=== PATIENT | male | born 1995 ===

== ENCOUNTER → 2016-06-13 | Outpatient (CLI) | payer MEDICARE, MEDICAID | END | disposition home or self-care (01) | LOC: RAD.S 05-27 08:00 | DX: R06.00 Dyspnea, unspecified (principal); Z53.9 Procedure and treatment not carried out, unspecified reason ==

== ENCOUNTER 2016-08-20 14:13 | Inpatient (IN) | payer MEDICARE, MEDICAID ==
[~2016-08-20] VITALS: Ht 160 cm; Wt 102.0 kg
--- NOTE | ~2016-08-20 | ECH ---
Transthoracic Echocardiography Report (TTE) Demographics Patient Name ABA AMES Date of Study 08/21/2016 Patient Number [id number] Visit Number [id number] Date of 1995 Room Number 302 Accession Number [id number] Gender Male Age 20 year(s) Referring Dennis Alvarez Patient Registration Clerk Rafaela Payne [facility] Physician Physician Interpreting King Huy Powers MD Election Judge Physician Supervising Ordering Physician Shanique Maxwell MD/KRISTIE HAYNES Nurse Stress Trucking Supervisor Conclusions Summary Technically fair exam. The estimated left ventricular ejection fraction is 60-65%. Moderate eccentric left ventricular hypertrophy. Diastolic assessment reveals Grade I diastolic dysfunction. Procedure Type of Study TTE procedure:Echo Complete SF. Procedure Date Date: 08/21/2016 Start: 12:02 PM Technical Quality: Fair due to patient on ventilator. Indications:Shortness of breath. Additional Indications:severe ARDS Appropriate Use Criteria: 8 Height: 63 inches Weight: 227 pounds BSA: 2.04 m Rhythm: Within normal limits HR: 97 bpm BP: 174/94 mmHg M-Mode/2D Measurements LV Diastolic Dimension: 4.28 cm LV Systolic Dimension: 3.2 cm LV Septum Diastolic: 1.66 cm LV PW Diastolic: 1.51 cm AO Root Dimension: 3.18 cm Cardiac Output: 5.61 l/min LA Dimension: 3.8 cm Cardiac Index: 2.75 l/min*m LA volume index: 24 ml/m LVOT: 1.99 cm RV Base: 3.9 cm LVOT VTI: 18.62 cm RV Mid: 3.5 cm LV Stroke volume: 57.88 ml RV Length: 6.7 cm LV Stroke volume index: 28.37 ml/m TAPSE: 2.3 cm TDI-S': 14 cm/s Doppler Measurements AV Peak Velocity: 1.1 m/s MV Peak E-Wave: 0.7 m/s AV Peak Gradient: 4.84 mmHg MV Peak A-Wave: 0.62 m/s AV Mean Gradient: 2.52 mmHg MV E/A Ratio: 1.13 LVOT Peak Velocity: 0.83 m/s MV P1/2t: 43.3 msec AV Area (Continuity):2.9 cm MV Deceleration Time: 186.5 msec MV Area (PHT): 5.09 cm PV Peak Velocity: 0.98 m/s PV Peak Gradient: 3.82 mmHg RA Area: 10.13 cm Findings Left Ventricle The left ventricle is normal in size . Moderate eccentric left ventricular hypertrophy. Diastolic assessment reveals Grade I diastolic dysfunction. Right Ventricle Normal right ventricle structure and function. Left Atrium Normal left atrial size. Right Atrium Normal right atrial size. Mitral Valve Mild thickening of the mitral valve leaflets. Aortic Valve Normal aortic valve structure and function. Tricuspid Valve Normal tricuspid valve structure and function. Pulmonic Valve Normal pulmonic valve structure and function. Pericardial Effusion No evidence of pericardial effusion. Miscellaneous Visualized portions of the aortic root and ascending aorta appear normal in size. Signature
--- NOTE | 2016-08-24 14:54 | HP ---
ADMIT: 08/20/2016 RM/LOC: 302 [facility] MR#: [id number] [address] [facility] [address] [place], [place] [address] ABA AMES Zuri [address] [facility] [place] [address] History and Physical SEX: M AGE: 20 : 1995 DATE OF SERVICE: CHIEF COMPLAINT: Hypoxia. HISTORY OF PRESENT ILLNESS: Sarah is a 20-year-old gentleman with severe autistic disorder and delay, who was nonverbal. He came to the ER with his family because they stated he had been up for a couple of nights, not sleeping and was coughing, running a fever. On presentation to the emergency room, oxygen saturation was in the 40s. He was started on oxygen and eventually switched to BiPAP at 15 L, which he remains. He has stable blood pressures and is actually running high pressure because of agitation. Sepsis markers are elevated, and he got a high white count. He will be admitted to the intensive care unit with sepsis and right-sided pneumonia. He was in the clinic on 08/19/2016 with cough and a temp of 101. He had symptoms just starting on the . He was eating less by report from family. He was started on cefdinir antibiotic and did take a couple of doses according to mom. He is unable to give us any history himself and cannot verbalize if he hurt anywhere or any other complaints. I do note that in the office, oxygenation was documented at 92%, blood pressure 138/90, and temperature was 101. PAST MEDICAL HISTORY: Significant for autistic spectrum disorder, severe and gastroesophageal reflux, legal blindness, behavioral disturbance related to his autism, and chronic constipation. The patient also has severe dental decay. PAST SURGICAL HISTORY: None reported, although he has had upper endoscopy, I believe several years ago according to family tell me. MEDICATIONS: 1. Zyprexa 5 mg at 8:00 a.m. and 5 mg at 1:00 p.m. and then one as needed in the evening. 2. Clonidine 0.1 mg b.i.d. 3. Hibiclens once weekly for bathing. 4. Ketoconazole 2% cream for skin rash. 5. Ketoconazole 2% shampoo use daily. 6. MiraLAX 17 g powder in water or juice daily. SOCIAL HISTORY: He has never smoked. There is no alcohol use. Does not exercise and mainly sitting at home with family caring for him. He is ambulatory at baseline. However, he has difficulties and requires assistance with his activities of daily living. When he eats, he feeds himself and mom reports he likes to eat things like bananas and other fruits and is typically eat six or seven bananas per day. FAMILY HISTORY: Unremarkable. No one at home has been sick recently. REVIEW OF SYSTEMS: GENERAL: Review of systems is taken from the parents. ADMIT: 08/20/2016 RM/LOC: 302 [facility] MR#: [id number] [address] [address] ABA AMES [address] [place] [address] History and Physical SEX: M AGE: 20 : 1995 They report fever starting yesterday and decreased appetite. He started acting like he did not feel good and mom wondered about sore throat. ENT: Positive for nasal drainage which looked green now and that started about 24 hours ago. No drainage from the eyes. He has very poor dentition because he does not want anybody to help him with cleaning his teeth. He has multiple broken teeth, broken up at the gum line. That is chronic according to parents and his old records. CARDIOPULMONARY: Positive for cough. He looks like he has been working hard to breathe according to mom. GASTROINTESTINAL: Positive for chronic constipation, but parents report no change in that. He has had no black stool. No vomiting. GENITOURINARY: He is incontinent and wears adult diaper. MUSCULOSKELETAL: He has contractures of his feet and really cannot communicate whether he has any pain now. NEUROPSYCHIATRIC: Again, is positive for his severe autism diagnosed as an according to parents. PHYSICAL EXAMINATION: VITAL SIGNS: Blood pressure 160s/90s, oxygenation currently 88% to 92% with 15 L O2 through BiPAP. GENERAL: He is in four point restraints and thrashing on the bed. He manages to get his hands moved around and grabbed his BiPAP mask. He is nonverbal, does not follow commands. HEENT: He opens his eyes intermittently. Mucous membranes are moist. His teeth are in very poor repair. LUNGS: His lungs have rhonchi throughout the right side and a little bit on the left. HEART: Tachycardic in the 110s. It sounds regular. He is in sinus tach on the monitor. ABDOMEN: Belly is obese, but also somewhat distended and tympanic. He is wearing adult undergarment with urine present and the urine is not dark. EXTREMITIES: Lower extremities have no edema. He has mild flexion contractures of his toes and feet. LABORATORY AND X-RAY DATA: Chest x-ray shows a right lung consolidation. His lactic acid is elevated at 5.0. Sodium 133, potassium 4.5, chloride 98, bicarb 32, BUN 13, creatinine 0.6. His glucose was 142, calcium 9.2, phosphorus 2.0. His albumin of 3.3. Liver enzymes are all normal. Mag is 2.4. Cardiac enzymes show CK of 104, troponin less than 0.015. White count 13.0, hemoglobin 13.3, hematocrit 42.5, and platelets are 230. His white cell differential shows elevated neutrophils with 85%. ASSESSMENT: 1. Sepsis. 2. Right-sided consolidation. Heart size is normal. 3. Severe autistic disorder and a nonverbal patient and parents who speaks only Cambodian. 4. Gastroesophageal reflux. 5. Chronic constipation. ADMIT: 08/20/2016 RM/LOC: 302 [facility] MR#: [id number] [address] [place] [address], [place] [address] ABA AMES [address] [place] [address] History and Physical SEX: M AGE: 20 : 1995 6. Legal blindness. 7. Acute respiratory failure secondary to the pneumonia. PLAN: His blood pressures are fine, but lactic acid and white count were elevated. He will be admitted for sepsis to the ICU. He is on BiPAP, and I will continue that. I am consulting Critical Care. Family was notified that if he deteriorates, we may need to intubate him and they said they understood that. They want full code status. We did start Levaquin and Zosyn antibiotic. Blood cultures have been drawn. I do note that. Attempts were made to get arterial blood gas, but were unable to do so because of the patient's agitation. We will keep him in restraints right now and give Zyprexa IM which we can use repeatedly if it is helpful. I will defer to Critical Care regarding further sedation if needed. Janet Stewart MD/ michael JOB #: [id number] CC: Peterson Collins, Attending Physician Peterson Collins, Family Physician
--- NOTE | 2016-08-25 13:03 | CO ---
ADMIT: 08/20/2016 RM/LOC: 302 [facility] MR#: [id number] [address] [place], [place] [address] ANTONIO AMES [address] [place], [place] [address] Consultation SEX: M AGE: 20 : 1995 Corrected: 08/21/2016 1530 ajf DATE OF CONSULTATION: 08/21/2016 ATTENDING PHYSICIAN: Peterson Collins CONSULTING PHYSICIAN: Saundra Morel APRN TIME-IN: 0930 hours. TIME-OUT: 1025 hours. REASON FOR CONSULTATION: Supportive Care consultation was requested by Dr. Collins for discussion of goals for care. HISTORY OF PRESENT ILLNESS: Antonio is a 20-year-old, male, with a history of severe autistic disorder with delay. He is nonverbal and requires total care. He presented to the emergency room on August 20 with cough and fevers. His oxygen saturations were found to be 40%. Therefore, he was placed on BiPAP. Chest x-ray showed pneumonia and he did screen positive for sepsis. He did require intubation after admission and is in severe ARDS. Respiratory panel for human pneumovirus. His chest x-ray looks a little worse today. He remains in the ICU receiving treatment. Due to his complexities, Supportive Care consultation was requested to discuss goals for care. In terms of advanced directives, the patient is a full code status. The patient's next of kin medical decision makers are his mom and dad. His father's name is Antonio Ames whose phone #[phone], and his mother is Nieves Ames whose phone #[phone] and [phone]. Symptomatically, he is sedated on the ventilator. He does not have any signs or symptoms of distress noted. PAST MEDICAL HISTORY: Autism spectrum disorder, GERD, legal blindness, behavioral disturbances related to autism, chronic constipation, severe dental decay. SURGICAL HISTORY: Upper endoscopy. ALLERGIES: THE PATIENT HAS NO KNOWN MEDICATION ALLERGIES. CURRENT MEDICATIONS: Please see the patient's MAR for specific routes and dosages. His current medications are as follows: 1. Levaquin. 2. Vancomycin. 3. Oxycodone IR. 4. Zyprexa. 5. Zosyn. 6. Pepcid. ADMIT: 08/20/2016 RM/LOC: 302 [facility] MR#: [id number] [address] [address] ANTONIO AMES [address] [place] [address] Consultation SEX: M AGE: 20 : 1995 7. DuoNeb. 8. Propofol. 9. Tylenol. 10.Nitrostat. SOCIAL HISTORY: The patient is disabled. He lives at home with his parents. He does not use alcohol or tobacco. FAMILY HISTORY: Reviewed and unremarkable. FUNCTIONAL REVIEW: Prior to his hospital stay, the patient's mother states that he could walk but required full assistance with all ADLs. His palliative performance scale prior to admission was around 30% to 40%. Currently, he is bed-bound. He has minimal intake. He is sedated. His current palliative performance scale is 10% to 20%. REVIEW OF SYSTEMS: A 10-point review of systems was completed with the patient's mother and other than those pertinent positives and negatives mentioned in HPI, it is negative. PHYSICAL EXAMINATION: GENERAL: The patient is sedated on the vent. He is in no acute distress. VITAL SIGNS: Temperature 98.4, pulse 98, respirations 20, blood pressure 175/76, oxygen 96% on 85% FiO2 via the ventilator. HEENT: Head is normocephalic. Pupils are 2 mm bilaterally and brisk. Oral mucosa pink and moist with very poor dentition. NECK: Supple. RESPIRATORY: Respirations are equal and nonlabored. LUNGS: Coarse. He does have secretions in the mouth. CARDIOVASCULAR: Rate rhythm regular without murmurs, rubs, or gallops. 1+ bilateral lower extremity edema noted. GASTROINTESTINAL: Soft. Nontender. Bowel sounds are hypoactive. MUSCULOSKELETAL: Generalized weakness. INTEGUMENTARY: Skin turgor is fair. NEUROLOGIC: Unresponsive on the ventilator. He will not follow commands. PSYCHIATRIC: Calm. No agitation noted. DIAGNOSTIC DATA: Sodium 133, potassium 4.5, BUN 12, creatinine 0.6, total protein 7.8, albumin 3.3. WBC is 10.3, hemoglobin 13.3, and platelets are 187. IMPRESSION: 1. Physical debility. 2. Severe developmental disorder/autism. 3. Malaise. 4. Difficulty coping. 5. Right community-acquired pneumonia. 6. Sepsis. 7. Respiratory failure. ADMIT: 08/20/2016 RM/LOC: 302 [facility] MR#: [id number] [address] [place] [id number] ANTONIO AMES [address] [place] [address] Consultation SEX: M AGE: 20 : 1995 8. Legal blindness. 9. Palliative care. 10.The patient is a full code. PLAN OF TREATMENT: 1. I was able to meet with the patient's mother and aunt at the bedside. We did use the blue phone for electromechanical technician services. I reviewed the patient's overall status, and we discussed goals for the time ahead. The patient's mom is frustrated and sad that he got this sick. She is aware that he is critically ill and that we are not sure how things will go in the time ahead. She desires aggressive treatment for his current issues and is hopeful that he will get through this and able to get back home. She does agree to ongoing discussions in the time ahead and much support is given to her during our discussion today. 2. I did review code status with the patient's mother, and she is very clear that she wants him to be a full code including CPR and defibrillation in the event of cardiac arrest. I did leave a Pashto information sheet regarding CPR with the patient's mother for review. We will revisit this subject again tomorrow to see if she has any questions regarding this. 3. They have contacted their audio specialist who will be following along for spiritual support. 4. We will continue to follow along in the care of this patient assist with goals pending his status. We would like to thank Dr. Collins for the invitation to participate in this patient's care. Total consultation time was 55 minutes from 0930 hours to 1025 hours with 35 minutes from 0935 hours to 1010 hours spent [id number] with the patient and family discussing goals for care and providing counseling and support. The plan of care was discussed with nursing. Saundra Morel APRN/ michael JOB #: [id number] CC: Peterson Collins, Attending Physician Peterson Collins, Family Physician Corrected: 08/21/2016 1530 ajf
--- NOTE | 2016-08-29 08:08 | DS ---
ADMIT: 08/20/2016 RM/LOC: 302 [facility] MR#: [id number] [address] [facility] [address] [place], [place] [address] ABA AMES Zuri [address] [place] [address] General Discharge Summary SEX: M AGE: 20 : 1995 ADMISSION DATE: 08/20/2016 DISCHARGE DATE: 08/21/2016 FINAL DIAGNOSES: 1. Acute respiratory failure/hypoxia with right-sided consolidation of the lungs-human metapneumovirus infection. 2. Sepsis secondary to acute respiratory failure/hypoxia. 3. Severe autistic disorder - nonverbal. 4. Gastroesophageal reflux disease. 5. Chronic constipation. BRIEF HISTORY: This severely developmentally delayed 20-year-old man was brought to the emergency room by family because for the previous couple of nights he had not been sleeping, was coughing and running a fever of unknown elevation. In the emergency room, his O2 sats were actually in the 40s. Eventually, he was placed on BiPAP with 15 L, which brought his O2 sats up in the low 90s. He had stable blood pressure and would actually run hypertension because of his agitation. He had been seen in the office the day prior with cough and temp of 101 and had been started on cefdinir and has had a couple doses before he deteriorated. In the office, his oxygenation was documented as 92% and temp of 101, and his vital signs otherwise were normal. In the ER, he had positive sepsis markers and he was admitted to intensive care for further evaluation and treatment. SIGNIFICANT LAB AND X-RAY: On admission, CBC showed a hemoglobin of 13 g with normal indices, platelets were 230,000, and white count was 13,000. Repeat CBC of 6.1, showed a hemoglobin of 13.3 and white count of 10,300. Protime and PTT on admission were normal. On admission, CMP showed a sodium of 133 mmol/L, glucose of 142 mg/dL, phosphorus of 2.0 mg/dL (normal 2.5 to 4.9), albumin of 3.3 g/dL (normal 3.5 to 5.0, and the CMP was otherwise within normal limits. Lactic acid on admission was 5.0 mmol/L, repeat approximately 6 hours later was 2.1 mmol/L and 12 hours later was 3.5 mmol/L. Serial arterial blood gases were followed by Critical Care on 08/20 at 1915 hours. His measured pH was 7.74 with a pCO2 of 55.9 mmHg, and PO2 of 65.0 mmHg with a calculated O2 saturation of 91%. Blood cultures obtained x2 on admission had no growth after 5 days incubation. Cultures obtained from his mini BAL had no growth after 3 days incubation. Respiratory pathogen panel obtained on admission was positive for human metapneumovirus. Chest x-ray on admission showed "right-sided consolidation, likely pneumonia." ADMIT: 08/20/2016 RM/LOC: 302 [facility] MR#: [id number] [address] [place] [phone] ABA AMES [address] [place] [address] General Discharge Summary SEX: M AGE: 20 : 1995 On 08/21, chest x-ray showed "bilateral opacities, increased since previous study, hypoventilated lungs, support tubes in good position." Echocardiogram of 08/21, showed an ejection fraction of 60% to 65%, moderate eccentric left ventricular hypertrophy and grade 1 diastolic dysfunction. EKG on admission showed "sinus tachycardia, possible right atrial abnormality," HOSPITAL COURSE: The patient was admitted to ICU through the ER, and routine ICU orders were followed. He was placed on the ER sepsis protocol with Zosyn/Levaquin. He was placed on medical restraint per protocol. Critical Care was consulted, and they were kind enough to see him almost immediately. He was given Zyprexa 10 mg IM for agitation. He was placed on BiPAP to keep his O2 sats greater than 90%. Following initial evaluation, Anesthesia was called to intubate the patient, and Critical Care set the parameters for the respirator. Propofol per protocol was used for sedation. He was placed on DuoNeb q.4 hours and q.2 p.r.n. Kept n.p.o., and eventually an NG tube was placed. Critical care added vancomycin. He was given Lasix 20 mg IV q.a.m. and was scheduled for bronchoscopy the next morning. Through the night, adjustments were made in his PEEP. By 08/21 (day 2). His temp was 100.6. Vital signs were reasonably stable. His chest x-ray looked worse. Palliative Care consult was requested, and they were kind enough to see him. Discussion was held with family about his critical illness. Full code status was maintained. Physical therapy, occupational therapy, also some as did the concrete mixing plant laborer. Adjustments were made in his respiratory pressures. He was started on heparin 5000 units subcu t.i.d. ADMIT: 08/20/2016 RM/LOC: 302 [facility] MR#: [id number] [address] [place] [address] ABA AMES [address] [place] [address] General Discharge Summary SEX: M AGE: 20 : 1995 Later that day, Dr. Bay was kind enough to call me and let me know that there was no critical care coverage for the next few days. He then made arrangements for transfer to [facility], and they were kind enough to accept him. He was transferred later that day on his respirator to [facility] with accepting physician being Dr. Mckeon. CONDITION ON TRANSFER: Critical, but stable on the above treatment. FINAL DISPOSITION: As noted. PROGNOSIS: Poor. Peterson Collins MD/ michael JOB #: [id number] CC: Peterson Collins MD, Attending Physician Peterson Collins MD, Family Physician
--- NOTE | 2016-09-07 15:51 | ER ---
ADMIT: 08/20/2016 RM/LOC: 302 [facility] MR#: [id number] [address] [facility] [address] [place], [place] [address] ABA AMES Zuri [address] [place] [address] Emergency Room Report SEX: M AGE: 20 : 1995 DATE: 08/20/2016 ADDENDUM: CHIEF COMPLAINT: Shortness of breath and unable to sleep. HISTORY OF PRESENT ILLNESS: This is a 20-year-old male who started to have upper respiratory infection just this last Thursday. They said on Thursday, he started to become more short of breath. They saw their doctor yesterday, was started on Ceftin. Today they just said he is more agitated, coughing a lot more, so brought him into the ER. Upon arrival, his sats were 47% on room air, very agitated. PAST MEDICAL HISTORY: Anxiety and GERD. HOME MEDICATIONS: Please see nurse's note. ALLERGIES: NO KNOWN ALLERGIES. SOCIAL HISTORY: Denies any tobacco, drug, or alcohol use per family. REVIEW OF SYSTEMS: Done per mom. The patient is unable to communicate. She denies that he has had any fevers. CARDIOVASCULAR and RESPIRATORY: Again he has had a cough and increased shortness of breath. All systems otherwise negative. PHYSICAL EXAMINATION: VITAL SIGNS: Blood pressure is 152/75, pulse is 110, respirations 22, temp 96.9, saturation of oxygen is 47% on room air. GENERAL APPEARANCE: The patient is very anxious and agitated. HEENT: Due to his agitation, I am not able to examine his throat, but he does have some nasal drainage. HEART: Tachycardic. LUNGS: Coarse bilateral more on the right than left. ABDOMEN: Soft, nontender. SKIN: Normal color, warm, and dry. No rashes noted. NEURO and PSYCH: He is alert, but again agitated. Noncommunicative which is chronic for him. ADMIT: 08/20/2016 RM/LOC: 302 [facility] MR#: [id number] [address] [facility] [address] [place] [phone] ABA MAES [address] [place] [address] Emergency Room Report SEX: M AGE: 20 : 1995 COURSE IN THE EMERGENCY ROOM: Sepsis protocol was ordered along with ABGs. We were not able to ever get this ABGs due to him being agitated. Chest x-ray showed that he had a right-sided pneumonia. PT/INR normal. CBC; his white count is 13, hemoglobin 13.3, and platelets normal. CMP normal except for sodium 133, glucose 142, inorganic phosphorus is 2, albumin 3.3. Cardiac enzymes are normal. EKG showed sinus tach at 101, lactic acid is 5. Fluids 30 mL/kg have been ordered, Zosyn and Levaquin have been ordered and started down here in emergency room. CLINICAL IMPRESSION: Right-sided pneumonia with severe hypoxia. DISPOSITION: He is stable at admit. He is on the BiPAP and saturating at 90%. JAKE Romero / Rodney Mares MD / modl JOB #: [id number] CC: Peterson Collins MD, Attending Physician Peterson Collins MD, Family Physician
== END 2016-08-21 16:40 | disposition short-term general hospital (02) | DRG 871 ==
LOC: ER 14:13 → 3ICU 15:35
PROVIDERS: ADMIT Family Medicine
PROC: 5A1935Z Respiratory Ventilation, Less than 24 Consecutive Hours (ICD-10-PCS; principal; 2016-08-20)
PROC: 0BH17EZ Insertion of Endotracheal Airway into Trachea, Via Natural or Artificial Opening (ICD-10-PCS; 2016-08-20)
DX: A41.9 Sepsis, unspecified organism (principal); J12.3 Human metapneumovirus pneumonia; J96.01 Acute respiratory failure with hypoxia; J80 Acute respiratory distress syndrome; F84.0 Autistic disorder; F41.9 Anxiety disorder, unspecified; K02.9 Dental caries, unspecified; K59.09 Other constipation; K21.9 Gastro-esophageal reflux disease without esophagitis; H54.8 Legal blindness, as defined in USA; F91.9 Conduct disorder, unspecified; M24.575 Contracture, left foot; M24.574 Contracture, right foot; Z78.1 Physical restraint status